=== PATIENT | male | born 1955 | race Caucasian/White ===

== ENCOUNTER → 2016-07-21 | Outpatient (CLI) | payer OTHER ==
[2016-07-21 14:50] LABS: BASO % 0.2 %; BASO ABS # 0.02 K/uL (0-0.2); COMPLETE YES; EOS % 0.6 %; HEMATOCRIT 39.3 % (42-52); IG% 0.2 %; LYMPH % 15.6 %; LYMPH ABS # 1.63 K/uL (1.2-3.4); MEAN CELL VOLUME 85.8 fL (80-100); MEAN CORPUSCULAR HEMOGLOBIN 29.3 pg (25-34); MEAN CORPUSCULAR HGB CONC 34.1 g/dl (32-36); MEAN PLATELET VOLUME 9.2 fL (7.4-10.4); MONO % 11.1 %; NEUT % 72.3 %; PLATELET COUNT 307 K/uL (130-400); RED BLOOD COUNT 4.58 M/uL (4.7-6.1); WHITE BLOOD COUNT 10.44 K/uL (4.8-10.8)
[2016-07-21 15:08] LABS: URINE APPEARANCE CLEAR (CLEAR); URINE BILIRUBIN NEG (NEG); URINE COLOR YELLOW; URINE EPITHELIAL CELL AUTO 0-5 /lpf (0-5); URINE NITRITE NEG (NEG); URINE SPECIFIC GRAVITY 1.022 (1.000-1.030); UROBILINOGEN NEG (NEG)
[2016-07-21 15:11] LABS: MANUAL MICROSCOPIC REQUIRED? NO; REVIEW REQ? NO
[2016-07-21 17:10] LABS: BLOOD UREA NITROGEN 21 mg/dl (7-18); BUN/CREATININE RATIO 15.8 (10-20); CALCIUM 8.9 mg/dl (8.5-10.1); CARBON DIOXIDE 30 mmol/L (21-32); CHLORIDE 106 mmol/L (98-107); GLUCOSE 117 mg/dl (70-99); POTASSIUM 3.7 mmol/L (3.5-5.1); SODIUM 140 mmol/L (136-145)
== END | disposition home or self-care (01) ==
LOC: C.LABBC 12:10
PROVIDERS: ATTEND Physician Assistant
DX: Z00.00 Encounter for general adult medical examination without abnormal findings (principal)

== ENCOUNTER → 2016-07-22 | Outpatient (CLI) | payer OTHER ==
--- NOTE | 2016-07-22 09:11 | DIAGNOSTIC IMAGING REPORT ---
KUB HISTORY: RENAL COLIC ON LEFT SIDE COMPARISON: None. FINDINGS: The bowel gas pattern is unremarkable. There are no dilated loops of small bowel to suggest an obstruction. No renal calculi. No right ureteral calculi. There is a 5 mm calcification at the expected location of the left ureteropelvic junction. There is also a 5 mm calcification overlying the left side of the sacrum. This could represent a distal left ureteral stone. Calcifications in the deep pelvis likely represent phleboliths. No pneumoperitoneum or pneumatosis. IMPRESSION: There are two 5 mm calcifications at the expected location of the proximal and distal left ureter. Electronically signed by: Luis Tellez M.D. 07/22/2016 9:09 AM Dictated Date/Time: 07/22/2016 9:07 AM
== END | disposition home or self-care (01) ==
LOC: C.RADBC 08:46
PROVIDERS: ATTEND Internal Medicine
DX: N23 Unspecified renal colic (principal)

== ENCOUNTER → 2016-07-26 | Outpatient (CLI) | payer OTHER ==
--- NOTE | 2016-07-26 14:18 | DIAGNOSTIC IMAGING REPORT ---
RENAL ULTRASOUND HISTORY: N23 Renal colic on left [id number] COMPARISON: KUB 07/22/2016. FINDINGS: Right kidney: 11.5 cm. No hydronephrosis. Normal corticomedullary differentiation and cortical thickness. Probable 3 mm stone within the lower pole. Left kidney: 13.2 cm. Mild hydronephrosis. Normal corticomedullary differentiation and cortical thickness. There is a 7 mm stone within the lower pole of the left kidney. Bladder: No bladder wall thickening. The left ureteral jet was not identified. IMPRESSION: 1. Mild left hydronephrosis. The left ureteral jet was not identified. 2. Suspect bilateral nephrolithiasis. Electronically signed by: Luis Tellez M.D. 07/26/2016 2:15 PM Dictated Date/Time: 07/26/2016 2:13 PM
== END | disposition home or self-care (01) ==
LOC: C.ULTRBC 13:43
PROVIDERS: ATTEND Internal Medicine
DX: N23 Unspecified renal colic (principal)

== ENCOUNTER → 2017-04-25 | Outpatient (CLI) | payer OTHER | END | disposition home or self-care (01) | LOC: C.LABSPEC 16:55 | PROVIDERS: ATTEND Physician Assistant Medical | DX: N20.0 Calculus of kidney (principal) ==

== ENCOUNTER → 2017-05-01 | Outpatient (CLI) | payer OTHER ==
[2017-05-01 15:35] LABS: ALBUMIN 3.6 gm/dl (3.4-5.0); ALT/SGPT 40 U/L (12-78); AST/SGOT 19 U/L (15-37); BLOOD UREA NITROGEN 26 mg/dl (7-18); CALCIUM 8.6 mg/dl (8.5-10.1); CARBON DIOXIDE 29 mmol/L (21-32); CREATININE 1.26 mg/dl (0.60-1.40); GLUCOSE 108 mg/dl (70-99); POTASSIUM 3.8 mmol/L (3.5-5.1); SODIUM 139 mmol/L (136-145)
[2017-05-01 15:40] LABS: ALKALINE PHOSPHATASE 58 U/L (45-117); CHOLESTEROL 246 mg/dl (0-200); LDL CHOLESTEROL CALCULATED 154 mg/dl; TOTAL PROTEIN 6.9 gm/dl (6.4-8.2)
[2017-05-02 06:43] LABS: HEMOGLOBIN A1C 6.1 % (4.5-5.6)
== END | disposition home or self-care (01) ==
LOC: C.LABBC 09:59
PROVIDERS: ATTEND Physician Assistant Medical
DX: Z00.00 Encounter for general adult medical examination without abnormal findings (principal); E78.5 Hyperlipidemia, unspecified; R73.9 Hyperglycemia, unspecified; R73.01 Impaired fasting glucose; I10 Essential (primary) hypertension; R39.198 Other difficulties with micturition

== ENCOUNTER → 2017-05-01 | Outpatient (CLI) | payer OTHER ==
--- NOTE | 2017-05-01 15:29 | DIAGNOSTIC IMAGING REPORT ---
ABDOMEN AND PELVIS CT WITHOUT CONTRAST CT DOSE: 997.64 mGycm HISTORY: Left-sided flank pain. Kidney stones. TECHNIQUE: Multiaxial CT images of the abdomen and pelvis were performed without contrast. A dose lowering technique was utilized adhering to the principles of ALARA. COMPARISON STUDY: KUB 07/22/2016. FINDINGS: The lung bases are clear. Hepatic steatosis. The unenhanced spleen, adrenal glands, pancreas, and gallbladder are unremarkable. No retroperitoneal lymphadenopathy. The bladder is not well-distended but appears unremarkable. There are 2 stones within the left kidney with the largest in the lower pole measuring 9 mm. There is also a punctate stone within the lower pole of the right kidney. No ureteral calculi. No hydronephrosis. The bladder is not well-distended but appears unremarkable. Suboptimal evaluation for bowel pathology due to the lack of intravenous and oral contrast. However, there is no definite bowel wall thickening or obstruction. Sigmoid diverticulosis. The appendix is likely surgically absent. IMPRESSION: 1. Bilateral nephrolithiasis. No ureteral stones. No hydronephrosis. 2. No definite bowel wall thickening or obstruction. 3. Hepatic steatosis. 4. Colonic diverticulosis. Electronically signed by: Luis Tellez M.D. 05/01/2017 3:28 PM Dictated Date/Time: 05/01/2017 3:22 PM
== END | disposition home or self-care (01) ==
LOC: C.CTS 15:06
PROVIDERS: ATTEND Physician Assistant Medical
DX: N20.0 Calculus of kidney (principal); K76.0 Fatty (change of) liver, not elsewhere classified; K57.90 Diverticulosis of intestine, part unspecified, without perforation or abscess without bleeding